=== PATIENT | male | born 1955 | race Caucasian/White ===

== ENCOUNTER 2022-05-09 13:15 | Observation (INO) ==
[2022-05-09] MEDS ORDERED: NITROGLYCERIN 2% OINT 1 INCH/GM PACK TOP STA (14:06)
[2022-05-09] MEDS ORDERED: ASPIRIN 325 MG TABLET PO STA (14:06)
[2022-05-09] MEDS ORDERED: ALBUTEROL/IPRATROPIUM 3 ML NEB RESP TX STA (14:06)
[2022-05-09 14:26] LABS: Basophils % 0.3 % (0.0-0.8); Eosinophils # 0.2 10*3/uL (0.0-0.87); Eosinophils % 2.8 % (0.00-10.9); Hematocrit 44.2 VOL% (42.0-52.0); Hemoglobin 14.7 GM/DL (14.0-18.0); Immature Granulocytes % 0.4 %; Immature Granulocytes Absolute 0.03 #; Lymphocytes # 1.9 10*3/uL (1.4-4.0); Lymphocytes % 26.2 % (21.2-54.2); Mean Corpuscular HGB Conc 33.3 GM/DL (32-36); Mean Corpuscular Volume 93.4 FL (87-102); Mean Platelet Volume 10.8 FL (9.6-12.0); Monocytes # 0.5 10*3/uL (0.11-0.8); Monocytes % 6.2 % (1.7-12.7); Neutrophils % 64.1 % (38.7-73.9); Platelet Count 149 T/CUMM (130-400); Red Blood Count 4.73 MC/CUMM (3.8-5.5); Red Cell Distribution Width 13.3 % (9.3-17.3); White Blood Count 7.4 T/CUMM (4-12)
[2022-05-09 14:32] LABS: PT Patient Result 10.6 SECS (10.1-12.1)
[2022-05-09 14:42] LABS: Albumin 3.9 G/DL (3.4-5.0); Bilirubin,Total 0.5 MG/DL (0.20-1.00); Calcium 9.2 MG/DL (8.5-10.1); Osmolality,Calculated 282.3 MOS/KG (273-304); Potassium 3.7 MMOL/L (3.5-5.1)
[2022-05-09] MEDS ORDERED: ONDANSETRON 4 MG/2 ML VIAL IV PRN (16:29)
[2022-05-09] MEDS ORDERED: ACETAMINOPHEN 325 MG TABLET PO PRN (16:29)
[2022-05-09] MEDS ORDERED: NITROGLYCERIN SL 0.4 MG TABLET SL PRN (16:33)
[2022-05-09] MEDS ORDERED: ALBUTEROL 2.5 MG/3 ML NEB RESP TX PRN (19:00)
[2022-05-09] MEDS: ALBUTEROL/IPRATROPIUM 3 ML NEB RESP TX SCH (19:34)
[2022-05-09] MEDS ORDERED: buPROPion 75 MG TABLET PO SCH (21:00)
[2022-05-09] MEDS ORDERED: SERTRALINE 100 MG TABLET PO SCH (21:00)
[2022-05-09] MEDS: APIXABAN 5 MG TABLET PO SCH (21:06)
[2022-05-09] MEDS: carvediloL 6.25 MG TABLET PO SCH (21:06)
[2022-05-09] MEDS: traZODone 50 MG TABLET PO SCH (21:06)
[2022-05-09] MEDS: buPROPion SR 100 MG TABLET PO SCH (21:07)
[2022-05-09] MEDS: ISOSORBIDE MONONITRATE 20 MG TABLET PO SCH (21:07)
[2022-05-09] MEDS: GABAPENTIN 300 MG CAPSULE PO SCH (21:07)
[2022-05-10] MEDS: ALBUTEROL/IPRATROPIUM 3 ML NEB RESP TX SCH ×5 (00:19→20:35)
[2022-05-10 04:35] LABS: Basophils % 0.3 % (0.0-0.8); Eosinophils # 0.3 10*3/uL (0.0-0.87); Eosinophils % 4.1 % (0.00-10.9); Hematocrit 40.6 VOL% (42.0-52.0); Hemoglobin 13.6 GM/DL (14.0-18.0); Immature Granulocytes % 0.5 %; Immature Granulocytes Absolute 0.03 #; Lymphocytes # 1.7 10*3/uL (1.4-4.0); Mean Corpuscular HGB Conc 33.5 GM/DL (32-36); Mean Corpuscular Volume 92.9 FL (87-102); Mean Platelet Volume 10.1 FL (9.6-12.0); Monocytes # 0.6 10*3/uL (0.11-0.8); Monocytes % 8.8 % (1.7-12.7); Neutrophils % 59.3 % (38.7-73.9); Platelet Count 133 T/CUMM (130-400); Red Blood Count 4.37 MC/CUMM (3.8-5.5); Red Cell Distribution Width 13.2 % (9.3-17.3); White Blood Count 6.4 T/CUMM (4-12)
[2022-05-10 05:01] LABS: Albumin 3.6 G/DL (3.4-5.0); Bilirubin,Total 0.7 MG/DL (0.20-1.00); Calcium 8.8 MG/DL (8.5-10.1); Osmolality,Calculated 276.5 MOS/KG (273-304); Potassium 3.3 MMOL/L (3.5-5.1); Risk Ratio 4.31; Thyroid Stimulating Hormone 1.25 uIU/ml (0.358-3.74); Total Protein 7.2 G/DL (6.4-8.2); VLDL Cholesterol 27.6 MG/DL
[2022-05-10] MEDS ORDERED: POTASSIUM CHLORIDE 20 MEQ TABLET PO ONE ×3 (07:44→12:00)
[2022-05-10] MEDS: buPROPion SR 100 MG TABLET PO SCH ×2 (08:25→21:48)
[2022-05-10] MEDS: carvediloL 6.25 MG TABLET PO SCH ×2 (08:25→21:47)
[2022-05-10] MEDS: ARIPiprazole 2 MG TABLET PO SCH (08:25)
[2022-05-10] MEDS: DIGOXIN 0.25 MG TABLET PO SCH (08:25)
[2022-05-10] MEDS: ISOSORBIDE MONONITRATE 20 MG TABLET PO SCH ×2 (08:25→21:47)
[2022-05-10] MEDS: APIXABAN 5 MG TABLET PO SCH ×2 (08:26→21:47)
[2022-05-10] MEDS: OMEPRAZOLE ODT 20 MG TABLET PO SCH (08:26)
[2022-05-10] MEDS: NICOTINE 14 MG/24 HR PATCH TRANSDERM SCH ×2 (08:26→08:37)
[2022-05-10] MEDS: TAMSULOSIN 0.4 MG CAPSULE PO SCH (08:26)
[2022-05-10] MEDS: GABAPENTIN 300 MG CAPSULE PO SCH ×3 (08:26→21:47)
[2022-05-10] MEDS: AZELASTINE NASAL 137 MCG/SPRAY 30 ML BOTTLE BOTH NARES SCH (08:27)
[2022-05-10] MEDS: NON-FORMULARY MEDICATION (Fluticasone-Umeclidin-Vilanter [Trelegy Ellipta] 100-62.5-25 mcg INH SCH (08:38)
[2022-05-10] MEDS: FUROSEMIDE 80 MG TABLET PO SCH (11:33)
[2022-05-10] MEDS: DOXYCYCLINE HYCLATE 100 MG CAPSULE PO SCH ×2 (14:29→21:47)
[2022-05-10] MEDS: methylPREDNISolone SOD SUC 125 MG/2 ML VIAL IV SCH (14:29)
[2022-05-10] MEDS ORDERED: AZITHROMYCIN INJ 500 MG in SODIUM CHLORIDE 0.9% 250 ML IV SCH (14:30)
[2022-05-10] MEDS ORDERED: ATORVASTATIN 40 MG TABLET PO SCH (21:00)
[2022-05-10] MEDS ORDERED: SERTRALINE 100 MG TABLET PO SCH (21:00)
[2022-05-10] MEDS ORDERED: ESCITALOPRAM 10 MG TABLET PO SCH (21:00)
[2022-05-10] MEDS: ASCORBIC ACID 500 MG TABLET PO SCH (21:47)
[2022-05-10] MEDS: traZODone 50 MG TABLET PO SCH (21:47)
[2022-05-11] MEDS: methylPREDNISolone SOD SUC 125 MG/2 ML VIAL IV SCH (01:00)
[2022-05-11] MEDS: ALBUTEROL/IPRATROPIUM 3 ML NEB RESP TX SCH ×2 (01:11→07:02)
[2022-05-11 05:14] LABS: Hematocrit 39.5 VOL% (42.0-52.0); Hemoglobin 13.2 GM/DL (14.0-18.0); Immature Granulocytes % 0.5 %; Immature Granulocytes Absolute 0.04 #; Lymphocytes # 0.6 10*3/uL (1.4-4.0); Lymphocytes % 8.6 % (21.2-54.2); Mean Corpuscular HGB Conc 33.4 GM/DL (32-36); Mean Platelet Volume 9.8 FL (9.6-12.0); Monocytes # 0.2 10*3/uL (0.11-0.8); Monocytes % 2.7 % (1.7-12.7); Neutrophils % 88.2 % (38.7-73.9); Platelet Count 138 T/CUMM (130-400); White Blood Count 7.4 T/CUMM (4-12)
[2022-05-11 05:33] LABS: Calcium 9.2 MG/DL (8.5-10.1); Osmolality,Calculated 279.7 MOS/KG (273-304); Potassium 4.1 MMOL/L (3.5-5.1)
[2022-05-11] MEDS ORDERED: SPIRONOLACTONE 25 MG TABLET PO SCH (09:00)
[2022-05-11] MEDS ORDERED: methylPREDNISolone SOD SUC 40 MG/1 ML VIAL IV SCH (09:00)
[2022-05-11] MEDS: AZELASTINE NASAL 137 MCG/SPRAY 30 ML BOTTLE BOTH NARES SCH (09:05)
[2022-05-11] MEDS: ARIPiprazole 2 MG TABLET PO SCH (09:05)
[2022-05-11] MEDS: TAMSULOSIN 0.4 MG CAPSULE PO SCH (09:08)
[2022-05-11] MEDS: carvediloL 6.25 MG TABLET PO SCH (09:08)
[2022-05-11] MEDS: APIXABAN 5 MG TABLET PO SCH (09:08)
[2022-05-11] MEDS: OMEPRAZOLE ODT 20 MG TABLET PO SCH (09:09)
[2022-05-11] MEDS: NICOTINE 14 MG/24 HR PATCH TRANSDERM SCH (09:09)
[2022-05-11] MEDS: DIGOXIN 0.25 MG TABLET PO SCH (09:09)
[2022-05-11] MEDS: FUROSEMIDE 80 MG TABLET PO SCH (09:09)
[2022-05-11] MEDS: GABAPENTIN 300 MG CAPSULE PO SCH (09:09)
[2022-05-11] MEDS: ISOSORBIDE MONONITRATE 20 MG TABLET PO SCH (09:09)
[2022-05-11] MEDS: NON-FORMULARY MEDICATION (Fluticasone-Umeclidin-Vilanter [Trelegy Ellipta] 100-62.5-25 mcg INH SCH (09:09)
[2022-05-11] MEDS: buPROPion SR 100 MG TABLET PO SCH (09:10)
[2022-05-11] MEDS: ASCORBIC ACID 500 MG TABLET PO SCH (09:10)
[2022-05-11] MEDS: DOXYCYCLINE HYCLATE 100 MG CAPSULE PO SCH (09:10)
[2022-05-11 12:32] VITALS: BP 139/73
== END 2022-05-11 13:10 | disposition home health service (06) ==
LOC: N.ED 13:15 → N.EDINP 13:15 → SUATTDRO 16:29 → N.TELEN 18:02
PROVIDERS: ADMIT Hospitalist; ATTEND Internal Medicine